=== PATIENT | male | born 1995 | race Caucasian/White ===

== ENCOUNTER 2022-11-21 07:55 | Emergency (ER) | payer BC ==
--- NOTE | 2022-11-21 08:16 | ERPHSYRPT ---
- History of Present Illness Time Seen by Provider: 11/21/22 08:15 Source: patient Exam Limitations: no limitations Patient Subjective Stated Complaint: Pt has chronic back pain and when he wakes in the morning he can usually work the stiffness out in the shower but today he could not and it got worse when he got to work, the pain is in his left lower back in one spot and it is as if it "catches" Triage Nursing Assessment: Pt brought to the ER by work friends, cinda wnl, rates pain as 8/10, feels as though his back might tighten all the way up if he stands in one position to long, has had this problem for about a year, pulses normal, skin n/w/d, not tender with palpatation, doesn't appear to be in any distress while laying Physician History: 27yo M here for worsening left sided low back since this AM. He reports a 1 year hx of back pain that is worse in the AM, but after a shower he is back to his baseline. He has gone to a chiropractor over the past year w/ minimal relief. Today the pain didn't improve after his shower and he couldn't get out of his truck the pain was so bad. He describes the pain as sharp, 10/10, w/out radiation. He denies F/C, LE weakness, numbness or tingling. No hx of previous injury or surgery to the area. He denies taking any medications to help w/ the pain prior to arrival. Timing/Duration: today Method of Injury: unknown Quality: sharp Back Pain Location: lumbar spine, paraspinous muscles Severity of Pain-Max: severe Severity of Pain-Current: severe Modifying Factors: Worsens With: movement Associated Symptoms: lower back pain, muscle spasms, No fever, No chills, No s weating, No urinary incontinence, No loss of bowel control, No constipation, No nausea, No vomiting, No problems urinating, No numbness in legs/feet, No weakness, No sensory/motor loss, No tingling in legs/feet Previous symptoms: different symptoms (previous episodes much less severe) Allergies/Adverse Reactions: azithromycin [From Zithromax] Allergy (Verified 11/21/22 08:10) Hx Influenza Vaccination/Date Given: No Hx Pneumococcal Vaccination/Date Given: No Travel Risk - International Travel Have you traveled outside of the country in past 3 weeks: No - Coronavirus Screening Are you exhibiting any of the following symptoms?: No Close contact with a COVID-19 positive Pt in past 14-21 Days: No - Vaccine Status Have you recieved a Covid-19 vaccination: Yes Support Services Coordinator: Moderna - Vaccination Dates Date of 2cond Vaccination (if applicable): 2020 - Review of Systems Constitutional: No Fever, No Chills, No Weakness Eyes: No Symptoms Ears, Nose, & Throat: No Symptoms Respiratory: No Symptoms Cardiac: No Symptoms Abdominal/Gastrointestinal: No Symptoms Genitourinary Symptoms: No Symptoms Musculoskeletal: Back Pain (left sided low back), No Deformity, No Fall, No Injury Skin: No Symptoms Neurological: Gait Changes (difficult to ambulate due to pain), No Focal Weakness, No Paralysis, No Parasthesia, No Sensory Changes Psychological: No Symptoms Endocrine: No Symptoms Hematologic/Lymphatic: No Symptoms Immunological/Allergic: No Symptoms All Other Systems: Reviewed and Negative - Past Medical History Pertinent Past Medical History: No - Past Surgical History Past Surgical History: No - Social History Smoking Status: Never smoker Exposure to second hand smoke: No Drug Use: none Patient Lives Alone: No - Nursing Vital Signs Nursing Vital Signs: Initial Vital Signs Temperature 97.1 F 11/21/22 08:02 Pulse Rate 65 11/21/22 08:02 Blood Pressure 128/69 11/21/22 08:02 O2 Sat by Pulse Oximetry 99 11/21/22 08:02 Pain Scale Pain Intensity [] 8 Pain Intensity 8 - Physical Exam General Appearance: mild distress, alert Eye Exam: eyes nml inspection Ears, Nose, Throat Exam: normal ENT inspection Neck Exam: normal inspection, non-tender, supple, full range of motion, No Bru dzinski, No Kernig's Respiratory Exam: airway intact, No respiratory distress Cardiovascular Exam: regular rate/rhythm, capillary refill <2 sec, No edema Back Exam: normal inspection, decreased range of motion, muscle spasm (left lumbar paraspinal), point tenderness, other (positive straight leg raise, + JONATHAN, + FADIR, sensation intact, strength 5/5, 2+ patellar reflex ), No CVA tenderness, No vertebral tenderness, No rash Extremity Exam: No swelling Neurologic Exam: alert, oriented x 3, cooperative, sensation nml, abnormal gait (secondary to pain), No motor deficits Skin Exam: normal color, warm, dry, No rash, No petechiae SpO2 Interpretation: normal SpO2: 99 O2 Delivery: Room Air - Course Nursing assessment & vital signs reviewed: Yes - CT Exams Lumbar Spine CT Interpretation: Negative Ordered Tests: Active Orders 24 hr Category Date Time Status LUMBAR SPINE W/O [CT] Stat Exams 11/21/22 08:24 Completed Medication Summary Generic Name Dose Route Start Last Admin Trade Name Freq PRN Reason Stop Dose Admin Acetaminophen 1,000 mg 11/21/22 08:25 11/21/22 09:04 Acetaminophen 500 Mg Tablet PO 12/21/22 08:24 1,000 mg Q4H PRN PRN Administration HEADACHE Discontinued Medications Generic Name Dose Route Start Last Admin Trade Name Freq PRN Reason Stop Dose Admin Cyclobenzaprine HCl 10 mg 11/21/22 08:23 11/21/22 09:04 Cyclobenzaprine Hcl 10 Mg Tablet PO 11/21/22 08:24 10 mg STAT ONE Administration Cyclobenzaprine HCl Confirm 11/21/22 09:03 Cyclobenzaprine Hcl 10 Mg Tablet Administered 11/21/22 09:04 Dose 10 mg .ROUTE .STK-MED ONE Ketorolac Tromethamine 60 mg 11/21/22 08:23 11/21/22 09:04 Ketorolac Tromethamine 30 Mg/Ml Inj IM 11/21/22 08:24 60 mg STAT ONE Administration Ketorolac Tromethamine Confirm 11/21/22 09:03 Ketorolac Tromethamine 30 Mg/Ml Inj Administered 11/21/22 09:04 Dose 60 mg .ROUTE .STK-MED ONE - Progress Progress: improved Progress Note: Patient still having pain, meds pending. CT lumbar spine wnl w/o evidence of fx or herniation. No concern for meningitis based on clinical presentation, vs and physical exam. Discussed importance of establishing w/ a PCP and starting PT. He voiced understanding. 11/21/22 09:03 11/21/22 09:37 Patient evaluated after meds, pain improved, still has pain if he turns too far to the left, but better than this AM. Patient was able to stand and walk w/out assistance under the supervision of nursing staff. I once again stressed the importance of f/u w/ PCP and starting PT. I sent home back exercises, Flexoril and Naproxen home w/ the patient. He voiced understanding and had no additional concerns at this time. - Departure Departure Disposition: Home Clinical Impression: Acute lumbar back pain, Paraspinal muscle spasm Condition: Good Critical Care Time: No Referrals: DOCTOR,NO FAMILY [Primary Care Provider] - Follow up/PCP as directed Instructions: Low Back Pain (DC), Back Exercises Prescriptions: Cyclobenzaprine HCl 10 mg [Cyclobenzaprine 10 MG] 10 mg PO TID PRN 10 Days #30 tablet PRN Reason: Muscle Spasms Naproxen Sodium 550 mg PO BID 10 Days #20 tablet
[2022-11-21] MEDS ORDERED: Cyclobenzaprine 10 MG PO ONE (08:23)
[2022-11-21] MEDS ORDERED: TORAdol 30 mg Injection IM ONE (08:23)
[2022-11-21] MEDS ORDERED: TYLENOL EXTRA STRENGTH 500 MG PO PRN (08:25)
--- NOTE | 2022-11-21 08:55 | XRAY ---
Indication: Low back pain radiating left hip. No known injury. Multiple contiguous axial images obtained through the lumbar spine. Sagittal and coronal reformatted images obtained. Comparison: None Axial images negative for acute fracture, suspicious bony lesions, or spinal canal stenosis. No obvious large disc herniation. Facets are symmetric. Sagittal and coronal reformatted demonstrates normal alignment with vertebral body heights/disc spaces maintained. No compression fracture or subluxation. Visualized noncontrasted soft tissues are unremarkable. Impression: Normal CT lumbar spine without contrast exam.
[2022-11-21 09:03] VITALS: BP 119/66; PULSE 73
[2022-11-21] MEDS ORDERED: Cyclobenzaprine 10 MG ONE (09:03)
[2022-11-21] MEDS ORDERED: TYLENOL EXTRA STRENGTH 500 MG ONE (09:03)
[2022-11-21] MEDS ORDERED: TORAdol 30 mg Injection ONE (09:03)
[2022-11-21 09:05] VITALS: O2SAT 99
== END 2022-11-21 09:49 | disposition home or self-care (01) ==
LOC: ED 07:55
DX: M54.50 Low back pain, unspecified (principal); M62.830 Muscle spasm of back
CPT/HCPCS: 72131; 96372; 99283; J1885; A9270-GY